=== PATIENT | male | born 1980 | race Caucasian/White ===

== ENCOUNTER 2018-05-11 18:58 | Emergency (ER) | payer OTHER ==
[2018-05-11 19:17] VITALS: BP 142/99
--- NOTE | 2018-05-11 19:39 | EDPHY ---
H & P Time Seen by Provider: 05/11/18 19:00 HPI/ROS: [place] on when he felt something go into his right eye this afternoon. He started having irritation in moderate discomfort to the right eye prompting his visit. He looked in the mirror and noted a small dark colored foreign body in the right lower quadrant of his right eye. ROS: HEENT: He reports no significant visual change to the affected eye. No left eye symptoms. No other complaints 5 point ROS is otherwise negative Past Medical/Surgical History: Otherwise healthy Smoking Status: Light smoker Physical Exam: Physical Exam Vital signs are normal. General: No acute distress HEENT: Atraumatic. Eyes: Pupils equal and react to light. Extraocular motions are intact. No significant conjunctival injection. Right eye exam in slit-lamp after proparacaine anesthesia is notable for a small metallic appearing foreign body to the cornea at about 7-8 o'clock. Anterior chamber appears normal. No hyphema. Lids and lashes are normal. Left eye exam normal Cardiac: Brisk capillary refill is intact throughout. Skin: No rash or pallor. Neuro: Alert and oriented x3 with no sensorimotor deficits. Initial differential diagnosis: Metallic foreign body, corneal injury Constitutional: Initial Vital Signs Temperature (C) 36.8 C 05/11/18 19:13 Heart Rate 95 05/11/18 19:13 Respiratory Rate 16 05/11/18 19:13 Blood Pressure 142/99 H 05/11/18 19:13 O2 Sat (%) 96 05/11/18 19:13 O2 Delivery Mode Room Air Allergies/Adverse Reactions: acetaminophen [From Vicodin] Allergy (Mild, Verified 05/11/18 19:12) Itching hydrocodone [From Vicodin] Allergy (Mild, Verified 05/11/18 19:12) Itching Home Medications: Medication Instructions Recorded Adderall 10 mg Tablet 05/11/18 Meds For Depression 05/11/18 Ofloxacin 0.3% [Ocuflox 0.3% (RX)] 2 drops EACHEYE Q1 #1 btl 05/11/18 MDM/Departure - MDM Procedures: Metallic Corneal foreign body and rust removal: After verbal consent proparacaine anesthesia using an eye Spud I was able to easily remove the metallic foreign body. I then used the motorized eye bur to puff out the rust that was present after foreign body removal. Patient tolerated this well. There were no complications. Procedures performed by myself ED Course/Re-evaluation: I counseled the patient regarding corneal injury after the procedure. Who will proceed home with ibuprofen and Tylenol analgesics. He declined any opiate or other analgesics besides [id number]. He will also use Ocuflox eyedrops. Recommended no work for the next 2 days. He will follow up with Ophthalmology if not improving over the next 3-4 days as anticipated. - Depart Disposition: Home, Routine, Self-Care Clinical Impression: Corneal foreign body Qualifiers: Encounter type: initial encounter Laterality: right Qualified Code(s): T15.01XA - Foreign body in cornea, right eye, initial encounter Condition: Good Instructions: Corneal Abrasion (DC), Eye Foreign Body (ED) Additional Instructions: Diagnosis: Corneal foreign body-removed Plan: Ibuprofen and Tylenol for pain as needed Dark sunglasses Antibiotic eye drops as prescribed You're eye pain should improve over the next 3-4 days. No work for the next 2 days. Work as tolerated thereafter. Recheck at the customer care team coach listed below if he still having significant symptoms in 3-4 days despite treatment plan. You're I will be quite red from inflammation. It is best to lab your eye to be red-avoid using Visine or similar"red out" eye drops. Prescriptions: Ofloxacin 0.3% [Ocuflox 0.3% (RX)] 2 drops EACHEYE Q1 #1 btl Referrals: Unknown,Unknown [Primary Care Provider] - As per Instructions Karen Bell MD [Medical Doctor] - As per Instructions
== END 2018-05-11 19:46 | disposition home or self-care (01) ==
LOC: CED 18:58
PROC: 08C8XZZ Extirpation of Matter from Right Cornea, External Approach (ICD-10-PCS; principal; 2018-05-11)
DX: T15.01XA Foreign body in cornea, right eye, initial encounter (principal); X58.XXXA Exposure to other specified factors, initial encounter; Y92.810 Car as the place of occurrence of the external cause; Y93.9 Activity, unspecified; Y99.9 Unspecified external cause status
CPT/HCPCS: 99282-ER